=== PATIENT | female | born 1935 | race Caucasian/White ===

== ENCOUNTER 2022-05-22 14:03 | Emergency (ER) | payer OTHER ==
[~2022-05-22] VITALS: Ht 157.5 cm; Wt 58.1 kg
[2022-05-22 16:22] LABS: BASOPHILS % (AUTO) 0.3 % (0.0-5.0); HEMATOCRIT 35.6 % (36-48); MEAN CORPUSCULAR HEMOGLOBIN 32.8 pg (27.0-33.0); MEAN CORPUSCULAR HGB CONC 33.7 g/dL (32.0-36.0); MEAN CORPUSCULAR VOLUME 97.3 fL (79-99); MONOCYTES % (AUTO) 9.4 % (3.0-13.0); NEUTROPHILS % (AUTO) 72.1 % (40.0-77.0); PLATELET COUNT (AUTO) 265 K/uL (130-400); RED BLOOD CELL COUNT(AUTO) 3.66 MIL/uL (4.00-5.50); RED CELL DISTRIBUTION WIDTH 13.3 % (11.0-15.5); WHITE BLOOD COUNT (AUTO) 12.5 K/uL (4.8-10.8)
[2022-05-22 16:46] LABS: ALBUMIN 3.5 g/dL (3.5-5.0); CREATININE 0.6 mg/dL (0.5-1.5); POTASSIUM 4.1 mmol/L (3.5-5.1)
[2022-05-22 17:36] LABS: APPEARANCE,URINE CLEAR (CLEAR); BILIRUBIN,URINE NEGATIVE (NEGATIVE); COLOR,URINE LIGHT-YELLOW (YELLOW); GLUCOSE, URINE (UA) NEGATIVE (NEGATIVE); KETONES,URINE NEGATIVE (NEGATIVE); LEUKOCYTE ESTERASE ,URINE 75 Leu/uL (NEGATIVE); NITRATE,URINE NEGATIVE (NEGATIVE); OCCULT BLOOD,URINE NEGATIVE (NEGATIVE); PH,URINE 6.5 (5.0-8.0); PROTEIN,URINE NEGATIVE (NEGATIVE); UROBILINOGEN,URINE 0.2 mg/dL (0.2-1.0)
[2022-05-22 17:53] LABS: BACTERIA,URINE RARE /HPF (None Seen); SQUAMOUS EPITHELIAL CELL,UR RARE /HPF (0-2)
[2022-05-22] MEDS ORDERED: LIDOCAINE HCL 2% VISCOUS 15 ML UDCUP ONE (18:05)
[2022-05-22] MEDS ORDERED: MAG/ALUM/SIMETH 30 ML UDCUP ONE (18:05)
[2022-05-22] MEDS ORDERED: LIDOCAINE HCL 2% VISCOUS 15 ML UDCUP PO ONE (18:30)
[2022-05-22] MEDS ORDERED: MAG/ALUM/SIMETH 30 ML UDCUP PO ONE (18:30)
[2022-05-22] MEDS ORDERED: POLY17PO4 PO (19:20)
[2022-05-22] MEDS ORDERED: CEPH500B PO (19:20)
[2022-05-22 19:43] VITALS: BP 156/74
== END 2022-05-22 19:46 | disposition home or self-care (01) ==
LOC: EDH 14:03
DX: N39.0 Urinary tract infection, site not specified (principal); K59.00 Constipation, unspecified; K57.30 Diverticulosis of large intestine without perforation or abscess without bleeding; I10 Essential (primary) hypertension; Z90.89 Acquired absence of other organs; Z88.1 Allergy status to other antibiotic agents; Z20.822 Contact with and (suspected) exposure to COVID-19
CPT/HCPCS: 99284; 74176; 87635; 80053; 83690; 85025; 87088; 81001; 36415; C9803

== ENCOUNTER 2022-05-27 03:33 | Emergency (ER) | payer OTHER ==
[~2022-05-27] VITALS: Ht 154.9 cm; Wt 58.1 kg
[~2022-05-27 03:33] MED LIST: CEPH500B PO; POLY17PO4 PO
[2022-05-27] MEDS ORDERED: KETOROLAC 15MG/ML VIAL (15MG/ML) IV ONE (04:00)
[2022-05-27] MEDS ORDERED: 0.9%NACL 1000ML 1,000 ML IV ONE (04:00)
[2022-05-27] MEDS ORDERED: ONDANSETRON 4MG INJ IVP ONE (04:00)
[2022-05-27] MEDS ORDERED: MORPHINE 4 MG SYG IVP ONE (04:00)
[2022-05-27 04:07] LABS: BASOPHILS % (AUTO) 0.8 % (0.0-5.0); HEMATOCRIT 39.2 % (36-48); LYMPHOCYTES % (AUTO) 17.7 % (21.0-51.0); MEAN CORPUSCULAR HEMOGLOBIN 32.6 pg (27.0-33.0); MEAN CORPUSCULAR HGB CONC 33.4 g/dL (32.0-36.0); MEAN CORPUSCULAR VOLUME 97.5 fL (79-99); MONOCYTES % (AUTO) 9.3 % (3.0-13.0); NEUTROPHILS % (AUTO) 71.9 % (40.0-77.0); PLATELET COUNT (AUTO) 313 K/uL (130-400); RED BLOOD CELL COUNT(AUTO) 4.02 MIL/uL (4.00-5.50); RED CELL DISTRIBUTION WIDTH 13.1 % (11.0-15.5); WHITE BLOOD COUNT (AUTO) 15.2 K/uL (4.8-10.8)
[2022-05-27 04:11] LABS: APPEARANCE,URINE CLEAR (CLEAR); BILIRUBIN,URINE SMALL mg/dL (NEGATIVE); COLOR,URINE YELLOW (YELLOW); GLUCOSE, URINE (UA) NEGATIVE (NEGATIVE); KETONES,URINE 5 mg/dL (NEGATIVE); LEUKOCYTE ESTERASE ,URINE TRACE Leu/uL (NEGATIVE); NITRATE,URINE NEGATIVE (NEGATIVE); OCCULT BLOOD,URINE TRACE-INTACT (NEGATIVE); PROTEIN,URINE TRACE mg/dL (NEGATIVE); UROBILINOGEN,URINE 0.2 mg/dL (0.2-1.0)
[2022-05-27 04:15] LABS: CARBON DIOXIDE 27 mmol/L (21-32); CHLORIDE 97 mmol/L (101-111); CREATININE 0.8 mg/dL (0.5-1.5); GLOMERULAR FILTR. RATE CALC 72 mL/min (>60); GLUCOSE,RANDOM 119 mg/dL (70-105); POTASSIUM 3.7 mmol/L (3.5-5.1); SODIUM SERUM 132 mmol/L (136-145); UREA NITROGEN, BLOOD 17 mg/dL (7-18)
[2022-05-27 04:19] LABS: ALANINE AMINOTRANSFERASE 21 U/L (12-78); ALBUMIN 3.9 g/dL (3.5-5.0); ASPARTATE AMINOTRANSFERASE 23 U/L (10-37); BACTERIA,URINE Rare /HPF (None Seen); RBC,URINE 0-1 /HPF (0-1); SQUAMOUS EPITHELIAL CELL,UR Rare /HPF (0-2); TOTAL PROTEIN, SERUM 7.9 g/dL (6.0-8.3); WBC,URINE 0-1 /HPF (0-1)
[2022-05-27 04:21] LABS: LIPASE < 50 U/L (114-286)
[2022-05-27] MEDS ORDERED: ONDA4TAB10 PO (05:49)
[2022-05-27] MEDS ORDERED: HYOS0.124 SL (05:49)
[2022-05-27 05:52] VITALS: BP 149/38
== END 2022-05-27 06:16 | disposition home or self-care (01) ==
LOC: EDH 03:33
DX: R10.10 Upper abdominal pain, unspecified (principal); R11.2 Nausea with vomiting, unspecified; I25.10 Atherosclerotic heart disease of native coronary artery without angina pectoris; E78.00 Pure hypercholesterolemia, unspecified; I10 Essential (primary) hypertension; Z90.49 Acquired absence of other specified parts of digestive tract; Z98.890 Other specified postprocedural states
CPT/HCPCS: 99285; 96374; 76705; 96375; 96361; 84484; 80053; 83690; 85025; 81001; 36415; 93005; J2405; J2270; J1885